=== PATIENT | male | born 2000 | race Caucasian/White ===

== ENCOUNTER 2023-07-29 10:08 | Emergency (ER) | payer OTHER ==
[~2023-07-29] VITALS: Ht 162.6 cm; Wt 72.6 kg
[2023-07-29] MEDS ORDERED: ANTIVERT25 M2 PO (10:32)
== END 2023-07-29 11:27 | disposition home or self-care (01) ==
LOC: ER 10:09
DX: R42 Dizziness and giddiness (principal)